=== PATIENT | female | born 2000 | race Caucasian/White ===

== ENCOUNTER 2022-10-21 11:26 | Inpatient (IN) | payer OTHER ==
[~2022-10-21] VITALS: Ht 154.9 cm; Wt 61.7 kg
[2022-10-21] MEDS ORDERED: TERBUTALINE SULFATE 1 MG/ML VIAL SUBCUT ONE (12:45)
[2022-10-21] MEDS ORDERED: LR 1,000 ML IV ONE (12:45)
[2022-10-21] MEDS ORDERED: OXYTOCIN/0.9 % SODIUM CHLORIDE 1,000 ML IV SCH (12:45)
[2022-10-21 13:19] LABS: BASOPHILS % (AUTO) 0.3 % (0.0-2.0); EOSINOPHILS # (AUTO) 0.1 K/uL (0.0-0.4); HEMATOCRIT 38.7 % (36-48); HEMOGLOBIN 13.2 g/dL (12.0-16.0); LYMPHOCYTES # (AUTO) 1.6 K/uL (1.0-5.5); LYMPHOCYTES % (AUTO) 15.5 % (20.5-51.5); MEAN CORPUSCULAR HEMOGLOBIN 30 pg (27-31); MEAN CORPUSCULAR HGB CONC 34 % (32-36); MEAN CORPUSCULAR VOLUME 88 fL (79.0-98.0); MONOCYTES # (AUTO) 0.4 K/uL (0.0-1.0); MONOCYTES % (AUTO) 4.3 % (1.7-9.3); NEUTROPHILS % (AUTO) 78.9 % (40.0-70.0); PLATELET COUNT (AUTO) 196 K/uL (130-430); RED BLOOD CELL COUNT(AUTO) 4.39 MIL/uL (4.2-6.2); RED CELL DISTRIBUTION WIDTH 13.9 % (9.0-15.0); WHITE BLOOD COUNT (AUTO) 10.1 K/uL (4.8-10.8)
[2022-10-21] MEDS: LR 1,000 ML IV SCH ×2 (13:32→16:27)
[2022-10-21 15:24] VITALS: BP_SYST 125
[2022-10-21] MEDS ORDERED: fentaNYL CITRATE/PF 100 MCG/2 ML AMP ONE (16:25)
[2022-10-21] MEDS ORDERED: ROPIVACAINE HCL/PF 0.2% 200 ML ONE (16:25)
[2022-10-21] MEDS ORDERED: MORPHINE SULFATE 10 MG/ML VIAL ONE (16:50)
[2022-10-21] MEDS ORDERED: MORPHINE SULFATE 10 MG/ML VIAL IVP PRN (17:00)
[2022-10-21] MEDS ORDERED: NALOXONE HCL 0.4 MG/ML AMP (NARCAN) ONE (17:44)
[2022-10-21] MEDS ORDERED: LIDOCAINE PF 1% 30ML(POUR BTL) INJ ONE (17:44)
[2022-10-21] MEDS ORDERED: LIGHT MINERAL OIL 10 ML VIAL MC ONE (17:44)
[2022-10-21] MEDS ORDERED: HYDROcodone/ACETAMIN 5-325 MG TAB (NORCO/ VICODIN) PO PRN (18:00)
[2022-10-21] MEDS ORDERED: OXYCODONE/ACETAMINOPHEN 5-325 TABLET PO PRN ×2 (18:00)
[2022-10-21] MEDS ORDERED: LANOLIN 7 GM OINT. TP PRN (18:30)
[2022-10-21] MEDS ORDERED: RHO(D) IMMUNE GLOBULIN/MALTOSE 1500 UNITS/1.3 ML (WINHRO) IM PRN (18:30)
[2022-10-21] MEDS ORDERED: MEASLES,MUMPS&RUBELLA VACC/PF 12500 UNIT/0.5 ML VIAL SUBQ PRN (18:30)
[2022-10-21] MEDS ORDERED: WITCH HAZEL LEAF 1 MED.PAD MED.PAD TP PRN (18:30)
[2022-10-21] MEDS ORDERED: LIDOCAINE 1% 10 MG/ML, 20 ML MDV INJ ONE (18:30)
[2022-10-21] MEDS ORDERED: DERMOPLAST SPRAY TP PRN (18:30)
[2022-10-21] MEDS ORDERED: DIPHTH,PERTUSS(ACELL),TET VAC 0.5 ML VIAL (Tdap) I.M. PRN (18:30)
[2022-10-21] MEDS ORDERED: IBUPROFEN 600 MG TABLET PO ONE (18:30)
[2022-10-21] MEDS ORDERED: DOCUSATE SODIUM 100 MG CAPSULE PO ONE (20:15)
[2022-10-22] MEDS: IBUPROFEN 600 MG TABLET PO SCH ×5 (00:18→23:55)
[2022-10-22] MEDS ORDERED: DOCUSATE SODIUM 100 MG CAPSULE PO SCH (09:00)
[2022-10-22 09:48] LABS: HEMATOCRIT 33.4 % (36-48); HEMOGLOBIN 11.4 g/dL (12.0-16.0)
[2022-10-23] MEDS: IBUPROFEN 600 MG TABLET PO SCH ×2 (06:21→12:05)
== END 2022-10-23 15:08 | disposition home or self-care (01) | DRG 560 ==
LOC: OBSVTOIN 11:26 → SPU 11:26
PROVIDERS: ADMIT Obstetrics & Gynecology; ATTEND Obstetrics & Gynecology
PROC: 10E0XZZ Delivery of Products of Conception, External Approach (ICD-10-PCS; principal; 2022-10-21)
PROC: 3E0234Z Introduction of Serum, Toxoid and Vaccine into Muscle, Percutaneous Approach (ICD-10-PCS; 2022-10-21)
DX: O70.0 First degree perineal laceration during delivery (principal); Z37.0 Single live birth; Z20.822 Contact with and (suspected) exposure to COVID-19; Z3A.39 39 weeks gestation of pregnancy; Z23 Encounter for immunization
CPT/HCPCS: 36415; 81002; 85018; 85025; 86592; 86886; 86900; 86901; 90715; J2001; J2270; J2310; J2590; J3010; J7120